=== PATIENT | male | born 1975 | race Caucasian/White ===

== ENCOUNTER 2020-07-20 19:39 | Emergency (ER) | payer SELFPAY ==
[~2020-07-20] VITALS: Ht 182.9 cm; Wt 90.7 kg
[2020-07-20 19:39] VITALS: BP 145/92
[2020-07-20] MEDS: TETRACAINE HCL 0.5% OPHTALMIC 15 ML BOTTLE OP ONE (20:27)
== END 2020-07-20 20:30 | disposition home or self-care (01) ==
LOC: ER 19:39
DX: S05.8X2A Other injuries of left eye and orbit, initial encounter (principal); H11.32 Conjunctival hemorrhage, left eye; W22.8XXA Striking against or struck by other objects, initial encounter; Y93.89 Activity, other specified; Y92.89 Other specified places as the place of occurrence of the external cause; Y99.8 Other external cause status